=== PATIENT | male | born 1980 | race African-American/Black ===

== ENCOUNTER 2017-01-07 06:45 | Day surgery (SDC) | payer OTHER ==
[~2017-01-07] VITALS: Ht 172.7 cm; Wt 91.4 kg
[~2017-01-07 06:45] MED LIST: SODIUM CHLORIDE 0.9% 1,000 ML IV ONE
[2017-01-07] MEDS ORDERED: LIDOCAINE HCL 4% 50 ML SOLUTION TP ONE (06:46)
[2017-01-07] MEDS ORDERED: ALBUTEROL SULFATE 2.5 MG/0.5 ML NEB SOLUTION NEB ONE (06:46)
[2017-01-07] MEDS ORDERED: LIDOCAINE HCL 2% 5 ML JELLY TP ONE (06:46)
[2017-01-07] MEDS ORDERED: BENZOCAINE 20% 50 MCG/SPRAY 57 GM TP ONE (06:46)
[2017-01-07] MEDS ORDERED: SODIUM CHLORIDE 0.9% 1,000 ML IV ONE (06:52)
[2017-01-07] MEDS ORDERED: MIDAZOLAM HCL 2 MG/2 ML VIAL ONE (07:45)
[2017-01-07] MEDS ORDERED: FentaNYL CITRATE-PF 100 MCG/2 ML VIAL ONE (07:45)
[2017-01-07] MEDS ORDERED: MethylPREDNISolone SOD SUCC 125 MG/2 ML VIAL IVP ONE (09:00)
[2017-01-07] MEDS ORDERED: MethylPREDNISolone SOD SUCC 125 MG/2 ML VIAL ONE (09:21)
[2017-01-07] MEDS ORDERED: OXYGEN THERAPY IH SCH (20:00)
== END 2017-01-07 10:35 | disposition home or self-care (01) ==
LOC: SURGERY 06:45
PROVIDERS: ATTEND Internal Medicine Critical Care Medicine
DX: J38.4 Edema of larynx (principal); B37.0 Candidal stomatitis; Z98.890 Other specified postprocedural states; Z87.01 Personal history of pneumonia (recurrent)
CPT/HCPCS: 31623; 31624; 71010; 87015 ×2; 87070; 87101; 87205; 87220; 88108; 88312; J2250; J2930; J3010; J7030